=== PATIENT | male | born 1975 | race Caucasian/White ===

== ENCOUNTER 2016-09-02 17:14 | Outpatient (CLI) ==
[2015-12-21 19:40] VITALS: BMI 29.2
--- NOTE | 2016-09-02 21:14 | DI ---
EXAM: Lumbar spine five views HISTORY: Radiculitis, disc displacement, facet joint arthropathy, spinal stenosis COMPARISON: None TECHNIQUE: Five views lumbar spine were performed including oblique views FINDINGS: Sacroiliac joints intact. Sacral arcuate lines intact. Vertebral bodies normal height. No fracture. No subluxation. Mild intervertebral disc space narrowing L5-S1. Small marginal oste ophyte formation. Mild multilevel facet arthrosis. IMPERSSION: Mild chronic discogenic degenerative disease and facet arthrosis.
== END 2016-09-02 17:15 | disposition home or self-care (01) ==
LOC: RAD 17:14
PROVIDERS: ATTEND Pain Medicine Interventional Pain Medicine
DX: M54.12 Radiculopathy, cervical region (principal); M54.14 Radiculopathy, thoracic region; M54.16 Radiculopathy, lumbar region; M50.20 Other cervical disc displacement, unspecified cervical region; M51.24 Other intervertebral disc displacement, thoracic region; M51.26 Other intervertebral disc displacement, lumbar region; M47.812 Spondylosis without myelopathy or radiculopathy, cervical region; M47.817 Spondylosis without myelopathy or radiculopathy, lumbosacral region; M48.06 Spinal stenosis, lumbar region; M51.36 Other intervertebral disc degeneration, lumbar region; M51.37 Other intervertebral disc degeneration, lumbosacral region

== ENCOUNTER 2017-01-02 22:13 | Emergency (ER) ==
--- NOTE | 2017-01-02 22:28 | ED.PDOC ---
General ED Provider: Dr. GAYATRI WANG-ER Chief Complaint: Respiratory Complaint Stated Complaint: im coughing up some contreras stuff Time Seen by Physician: 22:26 Mode of Arrival: Walk-In Information Source: Patient Primary Care Provider: GAYATRI WANG Nursing and Triage Documentation Reviewed and Agree: Yes Respiratory Complaint Exam - Respiratory Complaint/Exam Onset/Duration: several days Symptoms Are: Still present Timing: Intermittent Initial Severity: Mild Current Severity: Mild Location: Chest Character: Reports: Productive cough Aggravating: Reports: URI Associated Signs and Symptoms: Reports: URI, Nasal congestion. Denies: Rapid breathing, Dyspnea, Fever, Chills, Chest pain, Pleuritic chest pain, Wheezing, Hemoptysis, Dizziness, Calf pain, Calf swelling, Edema, Hoarseness, Vomiting, Sore throat, Weight loss, Decreased oral intake, Increased thirst, Increased appetite Related History: Reports: Similar episode History of Healthcare-Acquired Pneumonia: No Related Surgical History: Reports: None Pulmonary Embolism Risk Factors: None Cardiac Risk Factors: Reports: Hypertension Pseudomonas Risk Factors: Reports: None Tuberculosis Risk Factors: Reports: None Status Asthmaticus Risk Factors: Reports: None Home Oxygen Use: No Recent Stress Test: No Recent Echo/LV Function: No Current Antibiotic Use: No Current Asthma Medication Use: No Respiratory Distress: None Inadequate Respiratory Effort: No Dysphagia Present: No Stridor Present: No JVD Present: No Accessory Muscle Use: No Retractions: Not Present Diminished Breath Sounds: No Sinus Tenderness: None Grunting Respirations: No Kussmaul Respirations: No Differential Diagnoses: Bronchitis Review of Systems - Review Of Systems Constitutional: Reports: No symptoms Eyes: Reports: No symptoms Ears, Nose, Mouth, Throat: Reports: Nose discharge Respiratory: Reports: Cough Cardiac: Reports: No symptoms GI: Reports: No symptoms : Reports: No symptoms Musculoskeletal: Reports: No symptoms Skin: Reports: No symptoms Neurological: Reports: No symptoms Endocrine: Reports: No symptoms Hematologic/Lymphatic: Reports: No symptoms All Other Systems: Reviewed and Negative Past Medical History - Past Medical History Previously Healthy: Yes Endocrine: Reports: None Cardiovascular: Reports: [place] Respiratory: Reports: None Hematological: Reports: None Gastrointestinal: Reports: None Genitourinary: Reports: None Neuro/Psych: Reports: Anxiety, Depression, Other (head injury with cognitive loss) Musculoskeletal: Reports: None Cancer: Reports: None - Surgical History General Surgical History: Reports: Unknown - Family History Family History: Reports: Unknown - Social History Smoking Status: Current some day smoker Hx Substance Use: No Alcohol Screening: Occasionally Physical Exam - Physical Exam Appearance: Well-appearing, No pain distress, Well-nourished Eyes: LITO ENT: Rhinorrhea Neck: Supple Respiratory: Rhonchi Cardiovascular: RRR, Pulses normal, No rub, No murmur GI/: Soft, Nontender, No masses, Bowel sounds normal, No Organomegaly Musculoskeletal: Normal strength, ROM intact, No edema, No calf tenderness Skin: Warm, Dry, Normal color Neurological: Sensation intact Psychiatric: Affect appropriate Critical Care Note - Critical Care Note Total Time (mins): 0 Departure - Departure Time of Disposition: 22:27 Disposition: HOME SELF-CARE Discharge Problem: Bronchitis Instructions: Acute Bronchitis (ED) Condition: Good Pt referred to PMD for follow-up: Yes Additional Instructions: augmentin 875mg bid x 7days=---prednisone 30mg x 3 days then 20mg x 3 days then 10mg x 2 days---see dr wang if not better in 7-10 days Allergies/Adverse Reactions: Allergies No Known Allergies Allergy (Verified 12/21/15 19:40) Home Medications: Ambulatory Orders Clonazepam [Clonazepam] 1 mg BEDTIME 01/14/15 Diphenhydramine HCl [Benadryl] 25 mg PO QID #30 capsule 01/14/15 Methocarbamol [Methocarbamol] 750 mg TID 01/14/15 Mirtazapine [Mirtazapine] 30 mg BEDTIME 01/14/15 Oxycodone-Acetaminophen 10-325 [Percocet 10-325] 1 tab PO Q8H 01/14/15 Epinephrine [Epipen 2-Warren] 0.3 mg IJ ONCE PRN #0.3 ml 12/21/15 Hydroxyzine HCl [Atarax] 25 mg PO TID PRN #25 tablet 12/21/15 Methylprednisolone [Medrol Dosepak] 4 mg PO DIRECTED #1 pkg 12/21/15 Disposition Discussed With: Patient, Family
[2017-01-02 22:45] VITALS: BP 148/92; TEMP 97.9; BMI 31.6
== END 2017-01-02 22:56 | disposition home or self-care (01) ==
LOC: ED 22:13
DX: J20.9 Acute bronchitis, unspecified (principal); F17.210 Nicotine dependence, cigarettes, uncomplicated; I10 Essential (primary) hypertension; I25.2 Old myocardial infarction
CPT/HCPCS: 99282

== ENCOUNTER 2017-03-27 21:55 | Emergency (ER) ==
[2017-03-27 22:06] VITALS: BP 162/88; TEMP 99.1; BMI 28.8
[2017-03-27] MEDS ORDERED: AUGMENTIN 875-125 MG TAB PO STA (22:25)
[2017-03-27] MEDS ORDERED: DECADRON 4 MG/ML SDV IM STA (22:25)
--- NOTE | 2017-03-27 22:28 | ED.PDOC ---
General ED Provider: Dr. MORENO MARIN Chief Complaint: Cough Stated Complaint: coughing, congestion, getting sputum, sore throat. Time Seen by Physician: 22:28 Mode of Arrival: Walk-In Information Source: Patient Primary Care Provider: GAYATRI WANG Nursing and Triage Documentation Reviewed and Agree: Yes Respiratory Complaint Exam - Respiratory Complaint/Exam Symptoms Are: Still present Timing: Constant Initial Severity: Mild Current Severity: Mild Location: Chest Character: Reports: Productive cough Aggravating: Reports: Allergens, URI Alleviating: Reports: None Associated Signs and Symptoms: Reports: URI, Nasal congestion, Hoarseness. Denies: Rapid breathing, Dyspnea, Fever, Chills, Chest pain, Pleuritic chest pain, Wheezing, Hemoptysis, Dizziness, Calf pain, Calf swelling, Edema, Sinus discomfort, Vomiting, Sore throat, Weight loss, Decreased oral intake, Increased thirst, Increased appetite, Increased urination Related History: Reports: Similar episode History of Healthcare-Acquired Pneumonia: No Related Surgical History: Reports: None Pulmonary Embolism Risk Factors: None Cardiac Risk Factors: Reports: None Pseudomonas Risk Factors: Reports: None Tuberculosis Risk Factors: Reports: None Status Asthmaticus Risk Factors: Reports: None Differential Diagnoses: Bronchitis, URI Review of Systems - Review Of Systems Constitutional: Reports: Malaise, Weakness Eyes: Reports: No symptoms Ears, Nose, Mouth, Throat: Reports: Throat pain Respiratory: Reports: Cough Cardiac: Reports: No symptoms GI: Reports: No symptoms : Reports: No symptoms Musculoskeletal: Reports: No symptoms Skin: Reports: No symptoms Neurological: Reports: No symptoms Endocrine: Reports: No symptoms Hematologic/Lymphatic: Reports: No symptoms All Other Systems: Reviewed and Negative Past Medical History - Past Medical History Previously Healthy: Yes Endocrine: Reports: None Cardiovascular: Reports: [place] Respiratory: Reports: None Hematological: Reports: None Gastrointestinal: Reports: None Genitourinary: Reports: None Neuro/Psych: Reports: Anxiety, Depression, Other (head injury with cognitive loss) Musculoskeletal: Reports: None Cancer: Reports: None - Surgical History General Surgical History: Reports: Unknown - Family History Family History: Reports: Unknown - Social History Smoking Status: Current some day smoker, Light tobacco smoker Hx Substance Use: No Alcohol Screening: Occasionally - Immunizations Tetanus Shot up to Date: Yes Physical Exam - Physical Exam Appearance: Well-appearing, No pain distress, Well-nourished Eyes: LITO, EOMI, Conjunctiva clear ENT: Ears normal, Nose normal, Erythema Respiratory: Airway patent, Breath sounds clear, Breath sounds equal, Respirations nonlabored Cardiovascular: RRR, Pulses normal, No rub, No murmur GI/: Soft, Nontender, No masses, Bowel sounds normal, No Organomegaly Musculoskeletal: Normal strength, ROM intact, No edema, No calf tenderness Skin: Warm, Dry, Normal color Neurological: Sensation intact, Motor intact, Reflexes intact, Cranial nerves intact, Alert, Oriented Psychiatric: Affect appropriate, Mood appropriate Critical Care Note - Critical Care Note Total Time (mins): 10 Course - Course Orders, Labs, Meds: Orders Category Date Time Status MOLECULAR GROUP A STREP Stat LAB 03/27/17 22:27 Results STREP SCREEN Stat LAB 03/27/17 22:27 Results Amoxicillin/Potassium Clav [Augmentin 875-125 mg Tab] MEDS 03/27/17 22:25 Discontinued 1 tab PO ONCE STA Dexamethasone 4 mg/ml Inj [Decadron 4 mg/ml Sdv] MEDS 03/27/17 22:25 Discontinued 4 mg IM ONCE STA Medications Discontinued Medications Generic Name Dose Route Start Last Admin Trade Name Freq PRN Reason Stop Dose Admin Amoxicillin/Clavulanate Potassium 1 tab 03/27/17 22:25 03/27/17 22:33 Augmentin 875-125 Mg Tab PO 03/27/17 22:26 1 tab ONCE STA Administration Dexamethasone Sodium Phosphate 4 mg 03/27/17 22:25 03/27/17 22:33 Decadron 4 Mg/Ml Sdv IM 03/27/17 22:26 4 mg ONCE STA Administration Vital Signs: Temp Pulse Resp BP Pulse Ox 03/27/17 21:57 99.1 F 80 20 162/88 H 98 Departure - Departure Time of Disposition: 22:47 Disposition: HOME SELF-CARE Discharge Problem: URTI (acute upper respiratory infection) Instructions: Upper Respiratory Infection in Children (ED) Condition: Stable Pt referred to PMD for follow-up: Yes Additional Instructions: Increase Hydration Tylenol prn Prescriptions: Amoxicillin/Potassium Clav [Augmentin 875-125 mg Tab] 1 tab PO Q12HR #20 tablet Prednisone 10 mg PO BIDWM #14 tablet Allergies/Adverse Reactions: Allergies No Known Allergies Allergy (Verified 03/27/17 22:06) Home Medications: Ambulatory Orders Clonazepam [Clonazepam] 1 mg PO BEDTIME 01/14/15 Mirtazapine [Mirtazapine] 30 mg PO BEDTIME 01/14/15 Oxycodone-Acetaminophen 10-325 [Percocet 10-325] 1 tab PO Q8H 01/14/15 Epinephrine [Epipen 2-Warren] 0.3 mg IJ ONCE PRN #0.3 ml 12/21/15 Acetaminophen [Tylenol Arthritis] 650 mg PO DAILY 01/02/17 Ibuprofen 400 mg PO DAILY 01/02/17 Amoxicillin/Potassium Clav [Augmentin 875-125 mg Tab] 1 tab PO Q12HR #20 tablet 03/27/17 Diphenhydramine HCl [Benadryl] 25 mg PO QID PRN 03/27/17 Prednisone 10 mg PO BIDWM #14 tablet 03/27/17 Disposition Discussed With: Patient
== END 2017-03-27 22:55 | disposition home or self-care (01) ==
LOC: ED 21:55
DX: J06.9 Acute upper respiratory infection, unspecified (principal); F17.210 Nicotine dependence, cigarettes, uncomplicated
CPT/HCPCS: 87651; 87880; 96372; 99283

== ENCOUNTER 2017-08-03 22:32 | Outpatient (CLI) | END 2017-08-03 22:33 | disposition home or self-care (01) | LOC: LAB 22:32 | PROVIDERS: ATTEND Pain Medicine Interventional Pain Medicine | DX: Z51.81 Encounter for therapeutic drug level monitoring (principal); Z79.891 Long term (current) use of opiate analgesic; F19.20 Other psychoactive substance dependence, uncomplicated | CPT/HCPCS: 36415; 80053; 82248; 84100 ==

== ENCOUNTER 2017-11-24 19:56 | Emergency (ER) ==
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
[2017-11-24 20:08] VITALS: BP 169/97; TEMP 98.8; BMI 29.8
== END 2017-11-24 20:17 | disposition home or self-care (01) ==
LOC: ED 19:56
DX: L08.9 Local infection of the skin and subcutaneous tissue, unspecified (principal); F17.210 Nicotine dependence, cigarettes, uncomplicated
CPT/HCPCS: 99282